=== PATIENT | male | born 1955 | race Caucasian/White ===

== ENCOUNTER → 2018-09-14 | Outpatient (CLI) | payer BC ==
[~2018-09-14] MED LIST: ASPI-587 PO; LISI40TA PO
--- NOTE | 2018-09-14 17:33 | Diagnostic Imaging Report ---
INDICATION: Right arm numbness x1 month. Neck pain. FINDINGS: Three views. Good alignment of the vertebral bodies. Body heights and disc spaces are well-maintained. There are large bony bridging osteophytes anteriorly at the C4-C5 level. Slightly smaller C5-C6 and C6-C7. Facets show good alignment throughout without hypertrophic changes. The atlantoaxial joint appears normal. There are no fractures. There is calcification in the right carotid bulb. IMPRESSION: Large bony bridging osteophyte noted anteriorly at C4-C5. No evidence of significant posterior hypertrophic endplate changes. Alignment is good. Dictated by: Dictated on workstation # [id number]
--- NOTE | 2018-09-14 17:39 | Diagnostic Imaging Report ---
INDICATION: Neck and back pain. FINDING: Three views. Thoracic spine shows good alignment. Body height is well maintained without compression fracture. There are large bony bridging osteophytes both anteriorly and laterally throughout the thoracic spine. The pedicles appear intact. No paraspinal masses. IMPRESSION: Diffuse degenerative spondylosis of the thoracic spine with large anterior bony bridging osteophytes. Dictated by: Dictated on workstation # [id number]
--- NOTE | 2018-09-14 17:50 | Diagnostic Imaging Report ---
EXAMINATION: Right foot radiographs, 3 views. COMPARISON: None. HISTORY: 63-year-old male, right lateral foot pain for one month. FINDINGS: There is mild osteoarthritis of the first metatarsophalangeal joint and first interphalangeal joint. The additional joint spaces are well-preserved. There is no identified bone erosion. There is no prominent focal soft tissue swelling. There is no identified acute fracture. There is no periosteal reaction. There is a calcaneal heel spur. There is very mild degenerative type enthesopathy at the insertion of the Achilles tendon. There is no identified tibiotalar joint effusion. There is very mild degenerative type enthesopathy of the dorsal aspect of the midfoot. IMPRESSION: 1. 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 2. Small calcaneal heel spur. 3. No identified acute bony abnormality of the right foot. Dictated by: Dictated on workstation # [id number]
== END ==
LOC: RAD 16:45
PROVIDERS: ATTEND Nurse Practitioner Family
DX: M25.78 Osteophyte, vertebrae (principal); M47.814 Spondylosis without myelopathy or radiculopathy, thoracic region; M77.31 Calcaneal spur, right foot; M19.071 Primary osteoarthritis, right ankle and foot; R20.0 Anesthesia of skin; M54.2 Cervicalgia
CPT/HCPCS: 72040; 72072; 73630

== ENCOUNTER → 2018-09-28 | Outpatient (CLI) | payer BC | LOC: RAD 14:28 | PROVIDERS: ATTEND Family Medicine | DX: M54.2 Cervicalgia (principal); M54.6 Pain in thoracic spine; Z53.8 Procedure and treatment not carried out for other reasons ==

== ENCOUNTER → 2019-02-24 | Outpatient (RCR) | payer BC | END | disposition home or self-care (01) | PROVIDERS: ATTEND Orthopaedic Surgery | DX: M25.511 Pain in right shoulder (principal); Z98.890 Other specified postprocedural states ==

== ENCOUNTER 2019-04-28 14:58 | Outpatient (RCR) | payer BC | END 2019-06-01 | disposition home or self-care (01) | PROVIDERS: ATTEND Orthopaedic Surgery | DX: M25.511 Pain in right shoulder (principal); Z96.651 Presence of right artificial knee joint; Z90.5 Acquired absence of kidney; Z90.49 Acquired absence of other specified parts of digestive tract; Z98.890 Other specified postprocedural states ==

== ENCOUNTER 2021-09-17 08:02 | Outpatient (RCR) | payer BC | END 2021-09-20 | disposition home or self-care (01) | PROVIDERS: ATTEND Orthopaedic Surgery | DX: Z47.1 Aftercare following joint replacement surgery (principal); Z96.652 Presence of left artificial knee joint ==

== ENCOUNTER 2021-09-25 08:01 | Outpatient (RCR) | payer BC | END 2021-10-20 | disposition home or self-care (01) | PROVIDERS: ATTEND Orthopaedic Surgery | DX: Z47.1 Aftercare following joint replacement surgery (principal); Z96.652 Presence of left artificial knee joint ==